=== PATIENT | female | born 1980 | race Caucasian/White ===

== ENCOUNTER 2016-04-05 17:21 | Emergency (ER) | payer MEDICAID ==
[~2016-04-05] VITALS: Ht 157.5 cm; Wt 82.0 kg
[2016-04-05 19:24] VITALS: Ht 157.5 cm; Wt 82.0 kg
[2016-04-05 21:31] LABS: BASOPHILS % 0.6 % (0.0-2.0); EOSINOPHILS # 0.1 10^3/ul (0.0-0.5); EOSINOPHILS % 1.8 % (0.0-7.0); HEMOGLOBIN 12.7 g/dl (12.0-16.0); LYMPHOCYTES # 2.5 10^3/ul (0.8-2.9); LYMPHOCYTES % 29.9 % (15.0-51.0); MEAN CORPUSCULAR HEMOGLOBIN 27.4 pg (29.0-33.0); MEAN CORPUSCULAR HGB CONC 33.4 g/dl (32.0-37.0); MEAN CORPUSCULAR VOLUME 81.9 fl (82.0-101.0); MEAN PLATELET VOLUME 8.3 fl (7.4-10.4); MONOCYTE # 0.6 10^3/ul (0.3-0.9); MONOCYTES % 6.8 % (0.0-11.0); NEUTROPHIL # 5.1 10^3/ul (1.6-7.5); NEUTROPHILS % 60.9 % (39.0-77.0); PLATELET COUNT 240 10^3/UL (140-440); RED BLOOD COUNT 4.63 10^6/ul (4.20-5.40); RED CELL DISTRIBUTION WIDTH 14.3 % (11.5-14.5); UNCORRECTED WBC 8.3 10^3/ul (4.8-10.8); WHITE BLOOD COUNT 8.3 10^3/ul (4.8-10.8)
[2016-04-05 21:37] LABS: CONDITION 1; LH ANALYZER COMMENTS 1
--- NOTE | 2016-04-05 22:06 | RADRPT ---
PROCEDURE: US Pelvis. CLINICAL INDICATION: Positive . Vaginal bleeding. TECHNIQUE: Multiple sonographic images of the pelvis were obtained utilizing a transabdominal tech nique. The images were reviewed on a PACS workstation. COMPARISON: None available FINDINGS: Uterus: Normal in size, contour and echogenicity with no evidence for myometrial masses. Size is est imated at 7.7 x 5 x 3.6 cm. Cervix: No abnormalities of significance are seen. Endometrium: Intrauterine gestational sac and a pole is present the gestational sac estimated at 11.1 mm. The crown-rump length is measured at 0.14 cm, out of range. There is no detectable hea rt beat. A small crescentic hypoechoic areas consistent with a subchorionic hemorrhage of approximat ron 5 mm. Right ovary / adnexa: Normal in size estimated at 3.5 x 2.3 x 1.8 cm. No evidence for masses, norm al blood flow on Doppler interrogation. Left ovary/adnexa: Normal in size estimated at 3 x 2.2 x 1.7 cm. No evidence for solid masses, norm al blood flow on Doppler interrogation. Cul-de-sac: No evidence of free fluid. RPTAT:HJJR IMPRESSION: 1. Intrauterine gestational sac and pole without a detectable heart beat raising concern for embryonic demise at 5 weeks 5 days. The lack of heartbeat detection may be in part technical becaus e of the early gestation. Correlation with serial serum beta HCG levels and follow-up ultrasound as indicated is recommended. 2. Small amount of subchorionic hemorrhage. 3. Sonographically normal ovaries and adnexa. Physician Kan Date Time Electronically viewed and signed by Physician Kan on 04/05/2016 22:05 /
--- NOTE | 2016-04-05 22:19 | ERD ---
ER Documentation Chief Complaint Date/Time DATE: 04/05/16 TIME: 22:15 Chief Complaint 6 weeks , vaginal bleeding 2 hours ago HPI Patient is a 35-year-old patient who presents to the ED with left sided pelvic pain and light spotting for 3 days. She states that her last normal menstrual period was 02/12/16. She denies fever or chills. She denies abdominal pain, nausea, vomiting or diarrhea. She denies headache or dizziness , chest pain, cough or shortness of breath. Denies leg pain or swelling. She does not have an OB doctor that she is following. ROS All systems reviewed and are negative except as per history of present illness. Medications Home Meds Active Scripts Cephalexin* (Keflex*) 500 Mg Capsule, 500 MG PO BID for 7 Days, CAP Prov:ELDA WEBER PA-C 04/06/16 Allergies Allergies: Coded Allergies: No Known Allergy (Unverified , 04/05/16) PMhx/Soc Medical and Surgical Hx: pt denies Medical Hx, pt denies Surgical Hx History of Surgery: No Anesthesia Reaction: No Hx Neurological Disorder: No Hx Respiratory Disorders: No Hx Cardiac Disorders: No Hx Psychiatric Problems: No Hx Miscellaneous Medical Probl: No Hx Alcohol Use: Yes (on the weekends) Hx Substance Use: No Hx Tobacco Use: No Smoking Status: Never smoker Physical Exam Vitals Vital Signs Date Time Temp Pulse Resp B/P Pulse Ox O2 Delivery O2 Flow Rate FiO2 04/05/16 19:24 99.1 87 20 112/57 98 Physical Exam GENERAL: Well-developed, well-nourished female. Appears in no acute distress. LUNG: Clear to auscultation bilaterally. No rhonchi, wheezing, rales or coarse breath sounds. HEART: Regular rate and rhythm. No murmurs, rubs or gallops. ABDOMEN: No scars, ecchymosis or rashes noted. Soft, nontender, and nondistended. Positive bowel sounds in all four quadrants. No rebound tenderness , no guarding. (-) McBurneys point tenderness. No CVA tenderness. Left-sided pelvic pain. Extremities: Equal pulses bilaterally. No peripheral clubbing, cyanosis or edema. No unilateral leg swelling. NEUROLOGIC: Alert and oriented. Moving all four extremities. 5/5 strength in all extremities. Normal speech. Steady gait. SKIN: Normal color. Warm and dry. No rashes or lesions. Capillary refill < 2 seconds Result Diagram: 04/05/16 2100 Results 24 hrs Laboratory Tests Test 04/05/16 21:00 04/05/16 23:30 Basophils # 0.010^3/ul Basophils % 0.6% Beta HCG, Quantitative 5533.9mIU/ml Blood Morphology Comment Eosinophils # 0.110^3/ul Eosinophils % 1.8% Hematocrit 38.0% Hemoglobin 12.7g/dl Lymphocytes # 2.510^3/ul Lymphocytes % 29.9% Mean Corpuscular Hemoglobin 27.4pg Mean Corpuscular Hemoglobin Concent 33.4g/dl Mean Corpuscular Volume 81.9fl Mean Platelet Volume 8.3fl Monocytes # 0.610^3/ul Monocytes % 6.8% Neutrophils # 5.110^3/ul Neutrophils % 60.9% Nucleated Red Blood Cells # 0.010^3/ul Nucleated Red Blood Cells % 0.0/100WBC Platelet Count 04173^3/UL Red Blood Count 4.6310^6/ul Red Cell Distribution Width 14.3% White Blood Count 8.310^3/ul Urine Bacteria FEW Urine Bilirubin NEGATIVE Urine Clarity CLEAR Urine Color LT. YELLOW Urine Glucose NEGATIVE% Urine Hemoglobin 3+ Urine Ketones NEGATIVE Urine Leukocyte Esterase 1+ Urine Microscopic RBC 10-25/HPF Urine Microscopic WBC 2-5/HPF Urine Nitrite NEGATIVE Urine Specific [place] 1.015 Urine Squamous Epithelial Cells RARE Urine Total Protein NEGATIVE Urine Urobilinogen 0.2 E.U./dL Urine pH 6.0 Procedures/MDM ER COURSE: I kept the patient and/or family informed of laboratory and diagnostic imaging results throughout the emergency room course. EKG, MONITORS, & DIAGNOSTIC IMAGING: [place] [id number] Radiology Main Line: [phone] DIAGNOSTIC IMAGING REPORT Patient: IVON ROCHA : 1980 Age: 35 Sex: F MR #: [id number] DOS: 04/05/162049 Ordering MD: ELDA WEBER PA-C Location: [facility] Room/Bed: PROCEDURE: US Pelvis. CLINICAL INDICATION: Positive . Vaginal bleeding. TECHNIQUE: Multiple sonographic images of the pelvis were obtained utilizing a transabdominal technique. The images were reviewed on a PACS workstation. COMPARISON: None available FINDINGS: Uterus: Normal in size, contour and echogenicity with no evidence for myometrial masses. Size is estimated at 7.7 x 5 x 3.6 cm. Cervix: No abnormalities of significance are seen. Endometrium: Intrauterine gestational sac and a pole is present the gestational sac estimated at 11.1 mm. The crown-rump length is measured at 0.14 cm, out of range. There is no detectable heart beat. A small crescentic hypoechoic areas consistent with a subchorionic hemorrhage of approximately 5 mm. Right ovary / adnexa: Normal in size estimated at 3.5 x 2.3 x 1.8 cm. No evidence for masses, normal blood flow on Doppler interrogation. Left ovary/adnexa: Normal in size estimated at 3 x 2.2 x 1.7 cm. No evidence for solid masses, normal blood flow on Doppler interrogation. Cul-de-sac: No evidence of free fluid. RPTAT:HJJR IMPRESSION: 1. Intrauterine gestational sac and pole without a detectable heart beat raising concern for embryonic demise at 5 weeks 5 days. The lack of heartbeat detection may be in part technical because of the early gestation. Correlation with serial serum beta HCG levels and follow-up ultrasound as indicated is recommended. 2. Small amount of subchorionic hemorrhage. 3. Sonographically normal ovaries and adnexa. Physician Kan Date Time Electronically viewed and signed by Physician Kan on 04/05/2016 22:05 JR/ CC: ELDA WEBER PA-C LAB INTERPRETATION: CBC showed no evidence of systemic infection or severe anemia. UA showed no evidence nitrites, 1+ leukocytes, 3+ hemoglobin Beta hCG 5533.9 Rh: B + MEDICAL DECISION MAKING: This is a 35-year-old female who is who presents with vaginal bleeding and pelvic pain. Vital signs were reviewed. Patient is afebrile. Patient is not hypoxic. Patient is not toxic or ill-appearing. Patient has a threatened . Her ultrasound is read by radiologist shows a intrauterine gestational sac and pole without a detectable heart rate raising concern for embryonic demise of 5 weeks 5 days. However the lack of heartbeat detection may be in part technical because of the early gestation. Correlate with serial serum beta hCG and follow-up ultrasound. Small amount of subchorionic hemorrhage and sonographically normal ovaries and adnexa. Low suspicion for ovarian torsion, PID, tuboovarian abscess, ectopic , bowel obstruction, pyelonephritis, appendicitis, cervicitis, septic , molar , HELLP syndrome, preeclampsia, eclampsia, placenta previa, placenta abruptia. Low suspicion for ectopic , , molar , endometriosis, PID, cervicitis, septic , molar , HELLP syndrome, preeclampsia, eclampsia, placenta previa, placenta abruptia. Patient does have a UTI. DISCHARGE: At this time, patient is stable for discharge and outpatient management with no new complaints during the ER course. Patient was sent home with instructions to return to the ED in 2 days for recheck of beta hCG and ultrasound.. Patient will be discharged home with instructions to recheck for new or worsening symptoms such as fever, nausea, weakness, LOC and to follow up with primary care in the next 1-2 days. Patient was advised to return to the ER for any new or worsening symptoms. Plan was discussed and patient and/or family understands and agrees. Home instructions were given. Departure Diagnosis: Primary Impression: Vaginal bleeding in patient at less than 20 weeks gestation Condition: Stable ELDA WEBER PA-C Apr 05, 2016 22:19
[2016-04-05 23:42] LABS: ADD UMIC YES; URINE BILIRUBIN (Dip) NEGATIVE (NEGATIVE); URINE BLOOD (Dip) 3+ (NEGATIVE); URINE COLOR LT. YELLOW (YELLOW); URINE GLUCOSE (Dip) NEGATIVE (NEGATIVE); URINE KETONES (Dip) NEGATIVE (NEGATIVE); URINE LEUKOCYTE ESTERASE (Dip) 1+ (NEGATIVE); URINE NITRITE (Dip) NEGATIVE (NEGATIVE); URINE TOTAL PROTEIN (Dip) NEGATIVE (NEGATIVE); URINE UROBILINOGEN (Dip) 0.2 E.U./dL (0.1-1.0)
[2016-04-06 00:02] LABS: BACTERIA,URINE FEW; SQUAMOUS EPITHELIAL CELL,UR RARE
[2016-04-06] MEDS ORDERED: CEPH-443 PO (00:10)
[2016-04-06 00:30] VITALS: BP 109/55; PULSE 71; TEMP 98.1
[2016-04-07] MEDS ORDERED: ACET500C5 PO (15:19)
== END 2016-04-06 00:30 | disposition home or self-care (01) ==
LOC: FTE 17:21
DX: O20.9 Hemorrhage in early pregnancy, unspecified (principal); R10.2 Pelvic and perineal pain; Z3A.01 Less than 8 weeks gestation of pregnancy
CPT/HCPCS: 76801; 76817; 81001; 81003; 84702; 85025; 86900; 86901; Z7502

== ENCOUNTER 2016-04-07 10:30 | Emergency (ER) | payer MEDICAID ==
[~2016-04-07] VITALS: Ht 180.3 cm; Wt 70.0 kg
[~2016-04-07 10:30] MED LIST: CEPH-443 PO
[2016-04-07 10:36] VITALS: Ht 180.3 cm; Wt 70.0 kg
[2016-04-07] MEDS ORDERED: ACETAMINOPHEN 500 MG TAB PO STA (13:09)
--- NOTE | 2016-04-07 13:25 | ERD ---
ER Documentation Chief Complaint Date/Time DATE: 04/07/16 TIME: 13:23 Chief Complaint VAGINAL BLEEDING X 3 DAYS 5 WEEKS HPI This is a 35-year-old female who presents to the emergency Department today with continued vaginal bleeding. Patient indicated she is a probably 5 weeks . She states she was seen here 2 days ago and was instructed to return. States she is here for repeat check. States she has taken antibiotics she was given. States she is not taking any medication for the pain. Denies any fevers or chills. Denies nausea or vomiting ROS All systems reviewed and are negative except as per history of present illness. Medications Home Meds Active Scripts Acetaminophen* (Tylophen*) 500 Mg Capsule, 1 CAP PO Q6H Y for PAIN AND OR ELEVATED TEMP, #30 CAP Prov:RAMU ORANTES PA-C 04/07/16 Cephalexin* (Keflex*) 500 Mg Capsule, 500 MG PO BID for 7 Days, CAP Prov:ELDA WEBER PA-C 04/06/16 Allergies Allergies: Coded Allergies: No Known Allergy (Unverified , 04/05/16) PMhx/Soc History of Surgery: No Anesthesia Reaction: No Hx Neurological Disorder: No Hx Respiratory Disorders: No Hx Cardiac Disorders: No Hx Psychiatric Problems: No Hx Miscellaneous Medical Probl: No Hx Alcohol Use: Yes (on the weekends) Hx Substance Use: No Hx Tobacco Use: No Smoking Status: Never smoker Physical Exam Vitals Vital Signs Date Time Temp Pulse Resp B/P Pulse Ox O2 Delivery O2 Flow Rate FiO2 04/07/16 10:36 98.1 71 18 118/62 100 Physical Exam Const: No acute distress Head: Atraumatic Eyes: Normal Conjunctiva ENT: Normal External Ears, Nose and Mouth. Neck: Full range of motion..~ No meningismus. Resp: Clear to auscultation bilaterally Cardio: Regular rate and rhythm, no murmurs Abd: Soft, mild suprapubic tenderness, non distended. Normal bowel sounds. No right lower quadrant pain. No left lower quadrant pain. No tenderness at McBurney's Skin: No petechiae or rashes Neur: Awake and alert Psych: Normal Mood and Affect Result Diagram: 04/07/16 1320 Results 24 hrs Laboratory Tests Test 04/07/16 13:20 Basophils # 0.010^3/ul Basophils % 0.4% Beta HCG, Quantitative 4384.1mIU/ml Blood Morphology Comment Eosinophils # 0.110^3/ul Eosinophils % 1.6% Hematocrit 37.5% Hemoglobin 12.6g/dl Lymphocytes # 2.010^3/ul Lymphocytes % 25.5% Mean Corpuscular Hemoglobin 27.6pg Mean Corpuscular Hemoglobin Concent 33.7g/dl Mean Corpuscular Volume 81.8fl Mean Platelet Volume 8.5fl Monocytes # 0.510^3/ul Monocytes % 6.0% Neutrophils # 5.310^3/ul Neutrophils % 66.5% Nucleated Red Blood Cells # 0.010^3/ul Nucleated Red Blood Cells % 0.0/100WBC Platelet Count 24411^3/UL Red Blood Count 4.5910^6/ul Red Cell Distribution Width 14.2% White Blood Count 7.910^3/ul Current Medications Medications (Trade) Dose Ordered Sig/Stiven Route PRN Reason Start Time Stop Time Status Last Admin Dose Admin Acetaminophen (Tylenol Tab) 500 mg ONCE STAT PO 04/07/16 13:09 04/07/16 13:11 DC 04/07/16 14:04 Procedures/MDM This 35-year-old female who presents to the emergency department today for recheck of vaginal bleeding and less than 20 weeks. I did repeat some of her laboratory work as well as an ultrasound as her previous ultrasound taken 2 days ago showed an intrauterine gestational sac and pole without a detectable heart beat that was concerning for possible embryonic demise. Patient also had a small amount of subchorionic hemorrhage. There is no abnormalities in her ovaries or adnexa. CBC shows no elevated white blood cell count. She is not anemic. Her platelets are within normal limits. Beta Quant 4384.1 Ultrasound shows a cystic structure within the mid aspect of the uterus corresponding to a 5 week and 5 day gestation likely represents a nonviable . Ovaries are normal. There is no abnormal adnexal masses. There is no significant free fluid present in the pelvis. Patient's beta Quant 2 days ago was 5533.9 is trending downward. Today there is only a cystic structure and no evidence of an IUP or pole that was seen previously 2 days ago on her ultrasound. Symptoms at this time is consistent with failed . I've explained this to the patient. Low suspicion for ectopic . Patient is given Tylenol here in the emergency department. I will give her a prescription for home. I instructed her to get a repeat beta Quant 48 hours by her [employer]ERE[employer] HELPER. I have given her a list of resources. I have explained to the patient that she may continue to have vaginal bleeding. She was instructed to continue taking her Keflex for her urinary tract infection. At this time the patient is stable for discharge and outpatient management. Patient should follow up with their PCP in the next 1-2 days. They may return to the emergency department sooner for any persistent or worsening of symptoms. He indicated prior to discharge that she had been taking injections straight . I have instructed her to follow back up with her fertility specialist or physician that is giving her injections. Patient understood and agreed with the plan. Departure Diagnosis: Primary Impression: Vaginal bleeding in patient at less than 20 weeks gestation Condition: RAMU Man PA-C Apr 07, 2016 13:25
[2016-04-07 13:50] LABS: BASOPHILS % 0.4 % (0.0-2.0); CONDITION 1; EOSINOPHILS # 0.1 10^3/ul (0.0-0.5); EOSINOPHILS % 1.6 % (0.0-7.0); HEMATOCRIT 37.5 % (37.0-47.0); HEMOGLOBIN 12.6 g/dl (12.0-16.0); LYMPHOCYTES % 25.5 % (15.0-51.0); MEAN CORPUSCULAR HEMOGLOBIN 27.6 pg (29.0-33.0); MEAN CORPUSCULAR HGB CONC 33.7 g/dl (32.0-37.0); MEAN CORPUSCULAR VOLUME 81.8 fl (82.0-101.0); MEAN PLATELET VOLUME 8.5 fl (7.4-10.4); MONOCYTE # 0.5 10^3/ul (0.3-0.9); NEUTROPHIL # 5.3 10^3/ul (1.6-7.5); NEUTROPHILS % 66.5 % (39.0-77.0); PLATELET COUNT 214 10^3/UL (140-440); RED BLOOD COUNT 4.59 10^6/ul (4.20-5.40); RED CELL DISTRIBUTION WIDTH 14.2 % (11.5-14.5); UNCORRECTED WBC 7.9 10^3/ul (4.8-10.8); WHITE BLOOD COUNT 7.9 10^3/ul (4.8-10.8)
[2016-04-07 13:51] LABS: LH ANALYZER COMMENTS 1
--- NOTE | 2016-04-07 14:02 | RADRPT ---
PROCEDURE: US Pelvis/OB. CLINICAL INDICATION: vaginal bleeding TECHNIQUE: Multiple sonographic images of the pelvis were obtained utilizing a transabdominal and endovaginal technique. The images were reviewed on a PACS workstation. COMPARISON: 04/05/2016 FINDINGS: There is a small cystic structure within the endometrium, in the mid uterine segment, measuring 1.1 cm which would correspond to a calculated gestational age of 5 weeks and 5 days. No pole or yo lk sac is visualized. The ovaries are normal. No abnormal adnexal masses are present. The right ovary measures 3.5 x 2.2 x 2.5 cm. The left ovary measures 3.3 x 1.6 x 2.4 cm. No significant free fluid is present within the pelvis. RPTAT: AA IMPRESSION: Cystic structure within the mid aspect of the uterus corresponding to a 5 weeks and 5 days' gestatio n, likely represents a nonviable . Close followup ultrasound and hCG is recommended. .Frank Baldwin MD, MD Date Time Electronically viewed and signed by .Frank Baldwin MD, on 04/07/2016 14:02 .S/
[2016-04-07] MEDS ORDERED: ACET500C5 PO (15:19)
== END 2016-04-07 15:28 | disposition home or self-care (01) ==
LOC: FTE 10:30
DX: O20.9 Hemorrhage in early pregnancy, unspecified (principal); Z3A.01 Less than 8 weeks gestation of pregnancy
CPT/HCPCS: 76801; 76817; 84702; 85025; Z7502; Z7610

== ENCOUNTER 2017-08-23 20:16 | Emergency (ER) | END 2017-08-24 00:02 | disposition home or self-care (01) ==